=== PATIENT | female | born 1940 | race Caucasian/White ===

== ENCOUNTER → 2018-12-24 | Outpatient (CLI) | payer MEDICARE ==
[~2018-12-24] MED LIST: ALBIPROI INH; ALBU90OI INH; ALBU90OI6 INH; AMOCLA875 PO; FLUSAL2505 IH; MONT5TCH PO; PRED20 PO
[2018-12-24 09:31] LABS: BASOPHILS ABSOLUTE AUTO 0.06 K/mm3 (0.00-0.23); BASOPHILS PERCENT AUTO 1 % (0-2); EOSINOPHILS PERCENT AUTO 1 % (0-6); Hemoglobin 13.5 g/dL (11.5-16.0); IMMATURE GRAN ABSOLUTE AUTO 0.04 K/mm3 (0.00-0.10); IMMATURE GRAN PERCENT AUTO 1 % (0-1); LYMPHOCYTES ABSOLUTE AUTO 1.15 K/mm3 (0.84-5.20); LYMPHOCYTES PERCENT AUTO 15 % (21-46); MONOCYTES ABSOLUTE AUTO 0.79 K/mm3 (0.16-1.47); MONOCYTES PERCENT AUTO 10 % (4-13); Mean Corpuscular HGB 32.6 pg (26.0-34.0); Mean Corpuscular HGB Conc 32.9 g/dL (31.5-36.5); Mean Corpuscular Volume 99 fL (80-100); Mean Platelet Volume 10.4 fL (9.1-12.4); NEUTROPHILS ABSOLUTE AUTO 5.66 K/mm3 (1.96-9.15); NEUTROPHILS PERCENT AUTO 73 % (41-73); Platelet Count 312 K/mm3 (150-400); RDW Coefficient Variation 13.5 % (11.7-14.2); Red Blood Cell Count 4.14 M/mm3 (3.80-5.20)
[2018-12-24 09:42] LABS: Alanine Aminotransfer (ALT/SGP 22 U/L (12-78); Albumin, Blood 3.4 g/dL (3.4-5.0); Albumin/Globulin Ratio 0.9 (0.8-1.8); Alk Phos 96 U/L (40-126); Anion Gap 9 mmol/L (6-16); Aspartate Aminotrans (AST/SGOT 18 U/L (12-37); Blood Urea Nitrogen 9 mg/dL (8-24); Bun/Creatinine Ratio 15.8 (12.0-20.0); CO2, Blood 28 mmol/L (21-32); Calcium, Blood 9.1 mg/dL (8.5-10.1); Chloride, Blood 101 mmol/L (98-108); Creatinine, Blood 0.57 mg/dL (0.40-1.00); Globulin, Blood 3.7 g/dL (2.2-4.0); Glomerular Filtration Rate >60 (60-); Glucose, Blood 98 mg/dL (70-99); Potassium, Blood 3.9 mmol/L (3.5-5.5); Sodium, Blood 138 mmol/L (136-145); Total Protein, Blood 7.1 g/dL (6.4-8.2)
== END | disposition home or self-care (01) ==
LOC: LAB SHORT 09:25 → LAB EV 09:25
PROVIDERS: Physician Assistant
DX: R10.9 Unspecified abdominal pain (principal)
CPT/HCPCS: 80053; 83690; 85025

== ENCOUNTER 2019-01-07 12:03 | Emergency (ER) | payer MEDICARE ==
[~2019-01-07] VITALS: Ht 170.2 cm; Wt 53.5 kg
[2019-01-07] MEDS ORDERED: OMEPRAZOLE20 MG PO (12:39)
[2019-01-07] MEDS ORDERED: ALPR1 PO (12:39)
[2019-01-07] MEDS ORDERED: Advair Hfa 230-12 GM PO (12:40)
[2019-01-07] MEDS ORDERED: MONT10T PO (12:41)
[2019-01-07 12:44] LABS: BASOPHILS ABSOLUTE AUTO 0.07 K/mm3 (0.00-0.23); BASOPHILS PERCENT AUTO 1 % (0-2); EOSINOPHILS ABSOLUTE AUTO 0.04 K/mm3 (0.00-0.68); EOSINOPHILS PERCENT AUTO 1 % (0-6); Hematocrit 45.4 % (33.0-51.0); Hemoglobin 14.2 g/dL (11.5-16.0); IMMATURE GRAN ABSOLUTE AUTO 0.03 K/mm3 (0.00-0.10); IMMATURE GRAN PERCENT AUTO 0 % (0-1); LYMPHOCYTES ABSOLUTE AUTO 0.89 K/mm3 (0.84-5.20); LYMPHOCYTES PERCENT AUTO 12 % (21-46); MONOCYTES PERCENT AUTO 6 % (4-13); Mean Corpuscular HGB 33.1 pg (26.0-34.0); Mean Corpuscular HGB Conc 31.3 g/dL (31.5-36.5); Mean Corpuscular Volume 106 fL (80-100); Mean Platelet Volume 10.3 fL (9.1-12.4); NEUTROPHILS ABSOLUTE AUTO 5.73 K/mm3 (1.96-9.15); NEUTROPHILS PERCENT AUTO 80 % (41-73); Platelet Count 349 K/mm3 (150-400); RDW Coefficient Variation 13.6 % (11.7-14.2); RDW Standard Deviation 53.7 fL (35.1-46.3); Red Blood Cell Count 4.29 M/mm3 (3.80-5.20); White Blood Cell Count 7.16 K/mm3 (4.00-11.30)
[2019-01-07 13:10] LABS: Alanine Aminotransfer (ALT/SGP 34 U/L (12-78); Albumin, Blood 3.8 g/dL (3.4-5.0); Alk Phos 87 U/L (50-136); Anion Gap 13 mmol/L (6-16); Aspartate Aminotrans (AST/SGOT 31 U/L (12-37); Bilirubin, Total 0.5 mg/dL (0.1-1.0); Blood Urea Nitrogen 7 mg/dL (8-24); Bun/Creatinine Ratio 15.1 (12.0-20.0); CO2, Blood 18 mmol/L (21-32); Chloride, Blood 110 mmol/L (98-108); Creatinine, Blood 0.46 mg/dL (0.40-1.00); Globulin, Blood 3.8 g/dL (2.2-4.0); Glomerular Filtration Rate >60 (60-); Glucose, Blood 51 mg/dL (70-99); Sodium, Blood 141 mmol/L (136-145); Total Protein, Blood 7.6 g/dL (6.4-8.2)
[2019-01-07 13:10] LABS: Source, Urine Catheter
[2019-01-07 13:18] LABS: Bilirubin, Urine Neg (Neg); Blood, Urine 1+ (Neg); Glucose Qualitative, Urine Neg (Neg); Ketones, Urine 4+ (Neg); Leukocyte Esterase, Urine Neg (Neg); Nitrite, Urine Neg (Neg); Protein, Urine 1+ (Neg); Urobilinogen, Urine NORM (Normal)
[2019-01-07 13:27] LABS: Appearance, Urine Clear (Clear); Color, Urine Yellow (P-Yellow)
[2019-01-07 13:31] LABS: Bacteria Not Seen /hpf; Mucus Light (0-Heavy); Red Blood Cells, Urine 0-2 /hpf (0-2); Squamous Epithelial Cells Rare /hpf (Few); White Blood Cells, Urine 0-2 /hpf (0-5)
== END 2019-01-07 14:04 | disposition home or self-care (01) ==
LOC: ER 12:03
PROVIDERS: Emergency Medicine; Physician Assistant
DX: R41.82 Altered mental status, unspecified (principal); Z87.891 Personal history of nicotine dependence
CPT/HCPCS: 36415; 74176; 80053; 81001; 85025; 93005; 93010; 99284-25; P9612

== ENCOUNTER 2021-06-20 14:46 | Emergency (ER) | payer MEDICARE ==
[~2021-06-20] VITALS: Ht 162.6 cm; Wt 49.4 kg
[~2021-06-20 14:46] MED LIST changes: +ALPR1 PO; +Advair Hfa 230-12 GM INH; +Advair Hfa 230-12 GM PO; +MONT10T PO; +OMEPRAZOLE20 MG PO; +Ventolin/Prove6.7 GM INH
[2021-06-20 15:41] LABS: Source, Urine Clean Catch
[2021-06-20 16:24] LABS: BASOPHILS ABSOLUTE AUTO 0.08 K/mm3 (0.00-0.23); BASOPHILS PERCENT AUTO 1 % (0-2); EOSINOPHILS PERCENT AUTO 3 % (0-6); Hematocrit 42.8 % (33.0-51.0); Hemoglobin 14.1 g/dL (11.5-16.0); IMMATURE GRAN ABSOLUTE AUTO 0.02 K/mm3 (0.00-0.10); IMMATURE GRAN PERCENT AUTO 0 % (0-1); LYMPHOCYTES ABSOLUTE AUTO 0.95 K/mm3 (0.84-5.20); LYMPHOCYTES PERCENT AUTO 14 % (21-46); MONOCYTES ABSOLUTE AUTO 0.62 K/mm3 (0.16-1.47); MONOCYTES PERCENT AUTO 9 % (4-13); Mean Corpuscular HGB 33.7 pg (26.0-34.0); Mean Corpuscular HGB Conc 32.9 g/dL (31.5-36.5); Mean Corpuscular Volume 102 fL (80-100); Mean Platelet Volume 10.5 fL (9.1-12.4); NEUTROPHILS ABSOLUTE AUTO 4.95 K/mm3 (1.96-9.15); NEUTROPHILS PERCENT AUTO 73 % (41-73); Platelet Count 308 K/mm3 (150-400); RDW Coefficient Variation 12.1 % (11.7-14.2); RDW Standard Deviation 45.5 fL (35.1-46.3); Red Blood Cell Count 4.19 M/mm3 (3.80-5.20); White Blood Cell Count 6.82 K/mm3 (4.00-11.30)
[2021-06-20 16:34] LABS: Appearance, Urine Clear (Clear); Bilirubin, Urine Neg (Neg); Blood, Urine Neg (Neg); Color, Urine Yellow (P-Yellow); Glucose Qualitative, Urine Neg (Neg); Ketones, Urine Neg (Neg); Leukocyte Esterase, Urine Neg (Neg); Nitrite, Urine Neg (Neg); Protein, Urine Neg (Neg); Urobilinogen, Urine NORM (Normal)
[2021-06-20 16:43] LABS: Alanine Aminotransfer (ALT/SGP 27 U/L (12-78); Albumin, Blood 3.4 g/dL (3.4-5.0); Albumin/Globulin Ratio 0.9 (0.8-1.8); Alk Phos 65 U/L (50-136); Anion Gap 4 mmol/L (6-16); Aspartate Aminotrans (AST/SGOT 32 U/L (12-37); Bilirubin, Total 0.4 mg/dL (0.1-1.0); Blood Urea Nitrogen 7 mg/dL (8-24); Bun/Creatinine Ratio 12.7 (12.0-20.0); CO2, Blood 27 mmol/L (21-32); Calcium, Blood 8.6 mg/dL (8.5-10.1); Chloride, Blood 107 mmol/L (98-108); Creatinine, Blood 0.55 mg/dL (0.40-1.00); Globulin, Blood 3.7 g/dL (2.2-4.0); Glomerular Filtration Rate >60 (60-); Glucose, Blood 90 mg/dL (70-99); Potassium, Blood 4.2 mmol/L (3.5-5.5); Sodium, Blood 138 mmol/L (136-145); Total Protein, Blood 7.1 g/dL (6.4-8.2); Troponin I <0.015 ng/mL (0.000-0.040)
[2021-06-20] MEDS ORDERED: PRIMATENE MIST (17:09)
[2021-06-20] MEDS ORDERED: ALBU90OI INH (22:15)
[2021-06-20] MEDS ORDERED: Flonase 0.05% N16 GM (22:15)
[2021-06-20] MEDS ORDERED: PRED20 PO (22:15)
[2021-06-20] MEDS ORDERED: COMBIVENT RESPIM4 G1 INH (22:15)
== END 2021-06-20 22:45 | disposition home or self-care (01) ==
LOC: ER 14:46
PROVIDERS: Physician Assistant
DX: J44.1 Chronic obstructive pulmonary disease with (acute) exacerbation (principal); R42 Dizziness and giddiness; R51.9 Headache, unspecified; Z20.822 Contact with and (suspected) exposure to COVID-19; Z88.0 Allergy status to penicillin; Z79.899 Other long term (current) drug therapy
CPT/HCPCS: 36415; 70450; 71046; 74018; 80053; 81003; 83690; 83880; 84484; 85025; 85651; 86140; 93005; 93010; 94640; 99284-25; J7512

== ENCOUNTER 2021-10-08 12:17 | Inpatient (IN) | payer MEDICARE ==
[~2021-10-08] VITALS: Ht 162.6 cm; Wt 53.8 kg
[~2021-10-08 12:17] MED LIST changes: +BENZ100A PO; +COMBIVENT RESPIM4 G1 INH; +Flonase 0.05% N16 GM; +GUAI600T33 PO; +PRIMATENE MIST
[2021-10-08 13:15] LABS: BASOPHILS ABSOLUTE AUTO 0.03 K/mm3 (0.00-0.23); BASOPHILS PERCENT AUTO 0 % (0-2); EOSINOPHILS ABSOLUTE AUTO 0.05 K/mm3 (0.00-0.68); EOSINOPHILS PERCENT AUTO 1 % (0-6); Hematocrit 38.6 % (33.0-51.0); Hemoglobin 12.8 g/dL (11.5-16.0); IMMATURE GRAN ABSOLUTE AUTO 0.03 K/mm3 (0.00-0.10); IMMATURE GRAN PERCENT AUTO 0 % (0-1); LYMPHOCYTES ABSOLUTE AUTO 0.72 K/mm3 (0.84-5.20); LYMPHOCYTES PERCENT AUTO 11 % (21-46); MONOCYTES ABSOLUTE AUTO 0.89 K/mm3 (0.16-1.47); MONOCYTES PERCENT AUTO 13 % (4-13); Mean Corpuscular HGB 32.4 pg (26.0-34.0); Mean Corpuscular HGB Conc 33.2 g/dL (31.5-36.5); Mean Corpuscular Volume 98 fL (80-100); Mean Platelet Volume 10.6 fL (9.1-12.4); NEUTROPHILS ABSOLUTE AUTO 5.11 K/mm3 (1.96-9.15); NEUTROPHILS PERCENT AUTO 75 % (41-73); Platelet Count 226 K/mm3 (150-400); RDW Coefficient Variation 12.1 % (11.7-14.2); RDW Standard Deviation 43.8 fL (35.1-46.3); Red Blood Cell Count 3.95 M/mm3 (3.80-5.20); White Blood Cell Count 6.83 K/mm3 (4.00-11.30)
[2021-10-08 13:20] LABS: Source, Urine Clean Catch
[2021-10-08 13:23] LABS: Appearance, Urine Clear (Clear); Bilirubin, Urine Neg (Neg); Blood, Urine 2+ (Neg); Color, Urine Yellow (P-Yellow); Glucose Qualitative, Urine Neg (Neg); Ketones, Urine Neg (Neg); Leukocyte Esterase, Urine Neg (Neg); Nitrite, Urine Neg (Neg); Protein, Urine Neg (Neg); Urobilinogen, Urine NORM (Normal)
[2021-10-08 13:29] LABS: Red Blood Cells, Urine 0-2 /hpf (0-2); Squamous Epithelial Cells Not Seen /hpf (Few); White Blood Cells, Urine Not Seen /hpf (0-5)
[2021-10-08 13:30] LABS: Bacteria Rare /hpf
[2021-10-08 13:34] LABS: Base Excess Venous 5.1 mmol/L; Bicarbonate Venous 28.1 mmol/L (24.0-30.0); PCO2 Venous 51.1 mmHg (38-42); PO2 Venous 116 mmHg (38-42); pH Blood Venous 7.38 (7.34-7.37)
[2021-10-08 13:36] LABS: Alanine Aminotransfer (ALT/SGP 30 U/L (12-78); Albumin, Blood 3.7 g/dL (3.4-5.0); Albumin/Globulin Ratio 0.9 (0.8-1.8); Alk Phos 77 U/L (50-136); Anion Gap 3 mmol/L (6-16); Aspartate Aminotrans (AST/SGOT 28 U/L (12-37); Bilirubin, Total 0.4 mg/dL (0.1-1.0); Blood Urea Nitrogen 10 mg/dL (8-24); Bun/Creatinine Ratio 20.2 (12.0-20.0); CO2, Blood 31 mmol/L (21-32); Calcium, Blood 8.7 mg/dL (8.5-10.1); Chloride, Blood 102 mmol/L (98-108); Globulin, Blood 3.9 g/dL (2.2-4.0); Glomerular Filtration Rate >60 (60-); Glucose, Blood 109 mg/dL (70-99); Sodium, Blood 136 mmol/L (136-145); Total Protein, Blood 7.6 g/dL (6.4-8.2)
[2021-10-08] MEDS ORDERED: PRED20 PO (15:50)
[2021-10-08] MEDS ORDERED: DOXY100 PO (15:50)
[2021-10-08] MEDS ORDERED: TIOT18 (19:07)
[2021-10-08] MEDS ORDERED: ATROVENT HFA12.9 GM (19:09)
[2021-10-08] MEDS ORDERED: BUDESONIDE0.5 MG/2 M (19:09)
--- NOTE | 2021-10-08 22:02 | NUR ---
Patient arrived to unit about 1950. Alert and oriented x's 4, can be forgetful. No acute distress noted. Respirations even and unlabored, O2@2L via n/c, expiratory wheezing throughout. Oriented patient to room and call german, verbalized undersatnding, Safety maintained, call german in reach.
[2021-10-09 05:02] LABS: BASOPHILS ABSOLUTE AUTO 0.02 K/mm3 (0.00-0.23); BASOPHILS PERCENT AUTO 0 % (0-2); EOSINOPHILS ABSOLUTE AUTO 0.01 K/mm3 (0.00-0.68); EOSINOPHILS PERCENT AUTO 0 % (0-6); Hematocrit 34.6 % (33.0-51.0); IMMATURE GRAN ABSOLUTE AUTO 0.02 K/mm3 (0.00-0.10); IMMATURE GRAN PERCENT AUTO 0 % (0-1); LYMPHOCYTES ABSOLUTE AUTO 0.83 K/mm3 (0.84-5.20); LYMPHOCYTES PERCENT AUTO 16 % (21-46); MONOCYTES ABSOLUTE AUTO 0.55 K/mm3 (0.16-1.47); MONOCYTES PERCENT AUTO 11 % (4-13); Mean Corpuscular HGB 31.1 pg (26.0-34.0); Mean Corpuscular HGB Conc 31.8 g/dL (31.5-36.5); Mean Corpuscular Volume 98 fL (80-100); Mean Platelet Volume 11.2 fL (9.1-12.4); NEUTROPHILS ABSOLUTE AUTO 3.73 K/mm3 (1.96-9.15); NEUTROPHILS PERCENT AUTO 72 % (41-73); Platelet Count 209 K/mm3 (150-400); RDW Standard Deviation 43.9 fL (35.1-46.3); Red Blood Cell Count 3.54 M/mm3 (3.80-5.20); White Blood Cell Count 5.16 K/mm3 (4.00-11.30)
[2021-10-09 05:33] LABS: Alanine Aminotransfer (ALT/SGP 26 U/L (12-78); Albumin, Blood 3.2 g/dL (3.4-5.0); Albumin/Globulin Ratio 0.9 (0.8-1.8); Alk Phos 64 U/L (50-136); Anion Gap 4 mmol/L (6-16); Aspartate Aminotrans (AST/SGOT 24 U/L (12-37); Bilirubin, Total 0.4 mg/dL (0.1-1.0); Blood Urea Nitrogen 8 mg/dL (8-24); Bun/Creatinine Ratio 18.9 (12.0-20.0); CO2, Blood 30 mmol/L (21-32); Calcium, Blood 8.2 mg/dL (8.5-10.1); Chloride, Blood 105 mmol/L (98-108); Creatinine, Blood 0.42 mg/dL (0.40-1.00); Globulin, Blood 3.4 g/dL (2.2-4.0); Glomerular Filtration Rate >60 (60-); Glucose, Blood 100 mg/dL (70-99); Potassium, Blood 4.2 mmol/L (3.5-5.5); Sodium, Blood 139 mmol/L (136-145); Total Protein, Blood 6.6 g/dL (6.4-8.2)
--- NOTE | 2021-10-09 05:38 | NUR ---
Alert and oriented x's 4. Has increased SOB and expiratory wheezing on exertion. Medicated with scheduled nebulizers and solu medrol. 1 assist to BSC. Safety maintained, call german in reach.
--- NOTE | 2021-10-09 20:03 | NUR ---
SHIFT SUMMARY: NO ACUTE EVENTS. ON AIRVO HEATED HIGH FLOW O2 @ 30 L/MIN 21% FIO2. BREATH SOUNDS VERY DIMINISHED THROUGHOUT. GETTING UP TO BSC INDEPENDENTLY; HAD MED, HARD, BLACK BM TODAY AND BM MEDS GIVEN. HAVING PANIC EPISODES WHEN SOB; EDUCATED ABOUT PURSED LIP BREATHING, CLOSING EYES, AND NOT TALKING WHILE SOB TALKING USES VALUABLE OXYGEN AND VERBALIZED UNDERSTANDING. DENIED PAIN. THINKS SHE WILL BE DISCHARGED TOMORROW.
--- NOTE | 2021-10-10 05:20 | NUR ---
Alert and oriented x's 4. Continues on high flow n/c, tolerating well. At rest respirations even and unlabored. Continues to get very SOB and has audible wheezing on exertion. Once patient rests wheezing subsides. Requested Xanax at night due to anxiety, effective, patient verbalized she slept well through night. Safety maintained, call german in reach.
[2021-10-10 05:47] LABS: Albumin, Blood 3.3 g/dL (3.4-5.0); Anion Gap 5 mmol/L (6-16); Blood Urea Nitrogen 13 mg/dL (8-24); Bun/Creatinine Ratio 26.9 (12.0-20.0); CO2, Blood 30 mmol/L (21-32); Chloride, Blood 105 mmol/L (98-108); Creatinine, Blood 0.48 mg/dL (0.40-1.00); Glomerular Filtration Rate >60 (60-); Glucose, Blood 144 mg/dL (70-99); Phosphorus, Blood 2.8 mg/dL (2.5-4.9); Potassium, Blood 4.2 mmol/L (3.5-5.5); Sodium, Blood 140 mmol/L (136-145)
--- NOTE | 2021-10-10 07:00 | NUR ---
ASSUMED CARE AT 0700, RECEIVED REPORT FROM NIGHT RN. PT SITTING AT EDGE OF BED IN NO CURRENT DISTRESS.
--- NOTE | 2021-10-10 13:38 | NUR ---
BLACK STOOL PT HAD A BLACK STOOL THIS AM. DR. ARAIZA NOTIFED AND INFORMED NURSING STAFF TO KEEP THE STOOL AND CALL HER TO COME OBSERVE IT.
--- NOTE | 2021-10-10 15:00 | NUR ---
O2 TITRATED TO 13L FROM 15L HIGH FLOW NC. PT TOLERATING WELL AND SATING AT 98-99%
--- NOTE | 2021-10-10 17:05 | NUR ---
SHIFT SUMMARY PT TITRATED OFF OF THE AIRVO TODAY BY RT AND FURTHER TITRATED DOWN TO 10L VIA HIGH FLOW NC. PT TOLERATING THIS WELL AND SATING AT 98-99% ON CONT PULSE OX. PT MEDICATED FOR ANXIETY ONCE THIS SHIFT. ONLY A HALF A TAB PER PT REQUEST & THIS WORKED WELL FOR THE PT. NO OTHER ACUTE CHANGES IN ASSESSMENT AT THIS TIME. VS REVIEWED. PT DANGLING ON SIDE OF BED. CALL LIGHT IN REACH.
--- NOTE | 2021-10-10 18:45 | NUR ---
SHIFT SUMMARY PT WAS TITRATED FROM 15L ON HIGH FLOW TO 10L ON HIGH FLOW AND HAS A CURRENT SPO2 OF 98-99%. RESPIRATORY EFFORT HAS IMPROVED THROUGHOUT THE DAY, BUT STILL EXPERIENCING SOB WHILE TOILETING ON BSC. PT FAMILY VISITED THROUGHOUT THE DAY. PT WAS GIVEN XANAX FOR ANXIETY AND HAS IMPROVED. SHE IS REQUESTING TO HAVE ANOTHER DOSE BEFORE BED. WILL CONTINUE TO MONITOR UNTIL REPORT GIVEN TO NIGHT RN.
[2021-10-11 04:56] LABS: Albumin, Blood 3.3 g/dL (3.4-5.0); Anion Gap 3 mmol/L (6-16); Blood Urea Nitrogen 17 mg/dL (8-24); Bun/Creatinine Ratio 30.3 (12.0-20.0); CO2, Blood 32 mmol/L (21-32); Calcium, Blood 8.7 mg/dL (8.5-10.1); Chloride, Blood 103 mmol/L (98-108); Creatinine, Blood 0.56 mg/dL (0.40-1.00); Glomerular Filtration Rate >60 (60-); Glucose, Blood 147 mg/dL (70-99); Phosphorus, Blood 3.1 mg/dL (2.5-4.9); Potassium, Blood 4.3 mmol/L (3.5-5.5); Sodium, Blood 138 mmol/L (136-145)
--- NOTE | 2021-10-11 05:44 | NUR ---
SHIFT SUMMARY ALERT AND ORIENTED X'S 4. EXPIRATORY WHEEZING ON EXERTION HS. THIS AM IMROVING UPON EXERTION. CURRENTLY ON HIGH FLOW 5L, TOLERATING WELL, SATURATION 97%. SUPERVISION TO BSC. SAFETY MAINTAINED, CALL GALLEGOS IN REACH.
--- NOTE | 2021-10-11 12:27 | NUR ---
O2 TITRATED DOWN TO 4L. PT TOLERATING THIS AND SATING ABOVE 95%
--- NOTE | 2021-10-11 14:37 | NUR ---
Met pt. lying in bed and is doing much better , prayed with pt. and gave spiritual support.
--- NOTE | 2021-10-11 17:20 | NUR ---
SHIFT SUMMARY PT TITRATED TO 4L O2 TODAY VIA NC. PT MORE ANXIOUS TODAY, BUT HAS NOT HAD MANY VISITORS AND TENDS TO GET MORE ANXIOUS WHEN ALONE. SATING ABOUT 95% ALL DAY WITH NO EPISODES OF DESATURATION. NO OTHER ACUTE CHANGES IN ASSESSMENT AT THIS TIME. VS REVIEWED. PT SITTING UPRIGHT IN BED, VISITING WITH HER . CALL LIGHT IN REACH
--- NOTE | 2021-10-12 05:55 | NUR ---
ALERT AND ORIENTED X'S 4. SLEPT WELL THROUGH NIGHT. THIS AM HAD INCREASED WHEEZING WITH EXERTION, OTHER BURNS DIMINISHED. NEB TX GIVEN, PATIENT VOICED RELIEF. CURRENTLY SITTING UP WATCHING TV. NO ACUTE DISTRESS NOTED, RESPIRATIONS EVEN AND UNLABORED. SAFETY MAINTAINED, CALL GALLEGOS IN REACH.
--- NOTE | 2021-10-12 18:36 | NUR ---
SUMMARY- PT A/O X4, SBA TO BSC. LUNGS DIM IN BASES, FREQ EXP WHEEZE. ROUTINE NEBS. SOB WITH EXERTION. PT HAS DISCHARGE ORDERS BUT DAUGHTER GENESIS HAS REQUESETD FOR DC DELAY TOMORROW 1100, DR HITCHCOCK SPOKE WITH DAUGHTER AT BEDSIDE AND AGREED TO HOLE DC FOR TOMORROW. CHANGED SOLUMEDROL TO PREDINISONE.
--- NOTE | 2021-10-13 07:22 | NUR ---
Alert and oriented x's 4. Slept well through night. O2@2.5L via n/c. Patient attempting to untangle cords this am and began to wheeze, Neb tx given by RT, effective relief. Continues to cough up clear sputumn. Currently sitting up in bed watching TV. Safety maintained, call german in reach.
[2021-10-13] MEDS ORDERED: Acetaminophen650 M1 PO (09:24)
[2021-10-13] MEDS ORDERED: ALBU2.5V5 INH (09:25)
[2021-10-13] MEDS ORDERED: DOXY100 PO (09:26)
[2021-10-13] MEDS ORDERED: Prednisone10 MG PO (09:35)
[2021-10-13] MEDS ORDERED: MIRALAX1711 PO (09:36)
[2021-10-13] MEDS ORDERED: [UNRECOGNIZED DRUG - OTHER] PO (09:43)
--- NOTE | 2021-10-13 14:08 | NUR ---
PT DISCHARGED WITH INSTRUCTIONS. WHEELCHAIR OUT TO PRIVATE CAR, SON IN LAW DROVE HOME. PT HAS PORTABLE OXYGEN. BELONGS SENT HOME- IV DC'D. TOLERATING ACTIVITY IN ROOM TO BATHROOM AND SBA UP TO WHEELCHAIR WITH MIN SOB. NEB TX GIVEN BEFORE DISCHARGE.
== END 2021-10-13 12:16 | disposition home health service (06) | DRG 189 ==
LOC: ER 12:17 → MEDS 19:39 → ENPENDDIS 10-12 16:29 → MEDS 10-13 12:16
PROVIDERS: Internal Medicine; Student in an Organized Health Care Education/Training Program; ADMIT Internal Medicine
PROC: 5A0945A Assistance with Respiratory Ventilation, 24-96 Consecutive Hours, High Flow/Velocity Cannula (ICD-10-PCS; principal; 2021-10-08)
DX: J96.21 Acute and chronic respiratory failure with hypoxia (principal); R65.11 Systemic inflammatory response syndrome (SIRS) of non-infectious origin with acute organ dysfunction; J44.1 Chronic obstructive pulmonary disease with (acute) exacerbation; F41.9 Anxiety disorder, unspecified; K59.00 Constipation, unspecified; J20.9 Acute bronchitis, unspecified; Z99.81 Dependence on supplemental oxygen; Z98.890 Other specified postprocedural states; Z90.710 Acquired absence of both cervix and uterus; Z79.899 Other long term (current) drug therapy; Z88.0 Allergy status to penicillin; Z87.891 Personal history of nicotine dependence; J96.02 Acute respiratory failure with hypercapnia
CPT/HCPCS: 36415; 51701; 71045; 80053; 80069; 81001; 82803; 84145; 85025; 87070; 87205; 93005; 93010; 94640; 94762; 96365; 99285-25; A9270; J1650; J2920; J2930; J3475; J7030; J7512

== ENCOUNTER 2022-11-24 13:42 | Emergency (ER) | payer MEDICARE ==
[~2022-11-24] VITALS: Ht 160 cm; Wt 54.4 kg
[~2022-11-24 13:42] MED LIST changes: +ALBU2.5V5 INH; +ANORO ELLIPTA1 EACH INH; +ATROVENT HFA12.9 GM; +Acetaminophen650 M1 PO; +BUDESONIDE0.5 MG/2 M INH; +BUDESONIDE0.5 MG/25; +CEFP200 PO; +DOXY100 PO; +EXTRA PAIN REL1 EAC2 PO; +LOPE2C PO; +MELATONIN5 M1 PO; +MIRALAX1711 PO; +ONDA4ODT MM; +Prednisone10 MG PO; +TIOT18; +[UNRECOGNIZED DRUG - OTHER] PO
[2022-11-24 14:51] LABS: BASOPHILS ABSOLUTE AUTO 0.06 K/mm3 (0.00-0.23); BASOPHILS PERCENT AUTO 1 % (0-2); EOSINOPHILS ABSOLUTE AUTO 0.14 K/mm3 (0.00-0.68); EOSINOPHILS PERCENT AUTO 3 % (0-6); Hematocrit 38.1 % (33.0-51.0); Hemoglobin 12.6 g/dL (11.5-16.0); IMMATURE GRAN ABSOLUTE AUTO 0.01 K/mm3 (0.00-0.10); IMMATURE GRAN PERCENT AUTO 0 % (0-1); LYMPHOCYTES ABSOLUTE AUTO 0.84 K/mm3 (0.84-5.20); LYMPHOCYTES PERCENT AUTO 18 % (21-46); MONOCYTES ABSOLUTE AUTO 0.48 K/mm3 (0.16-1.47); MONOCYTES PERCENT AUTO 10 % (4-13); Mean Corpuscular HGB Conc 33.1 g/dL (31.5-36.5); Mean Corpuscular Volume 94 fL (80-100); Mean Platelet Volume 10.7 fL (9.1-12.4); NEUTROPHILS ABSOLUTE AUTO 3.27 K/mm3 (1.96-9.15); NEUTROPHILS PERCENT AUTO 68 % (41-73); Platelet Count 241 K/mm3 (150-400); RDW Coefficient Variation 12.6 % (11.7-14.2); RDW Standard Deviation 43.8 fL (35.1-46.3); Red Blood Cell Count 4.06 M/mm3 (3.80-5.20)
[2022-11-24 15:12] LABS: Albumin/Globulin Ratio 1.3 (0.8-1.8); Bilirubin, Total 0.6 mg/dL (0.1-1.0); Bun/Creatinine Ratio 19.4 (12.0-20.0); Calcium, Blood 9.6 mg/dL (8.5-10.1); Creatinine, Blood 0.52 mg/dL (0.40-1.00); Globulin, Blood 3.1 g/dL (2.2-4.0); Total Protein, Blood 7.1 g/dL (6.4-8.2)
[2022-11-24 17:45] VITALS: BP 124/88
== END 2022-11-24 18:45 | disposition home or self-care (01) ==
LOC: ER 13:42
PROVIDERS: Physician Assistant
DX: R10.32 Left lower quadrant pain (principal); R19.5 Other fecal abnormalities; T36.0X5A Adverse effect of penicillins, initial encounter; T36.1X5A Adverse effect of cephalosporins and other beta-lactam antibiotics, initial encounter; K57.32 Diverticulitis of large intestine without perforation or abscess without bleeding; J44.9 Chronic obstructive pulmonary disease, unspecified; Z88.0 Allergy status to penicillin; Z79.899 Other long term (current) drug therapy; Z99.81 Dependence on supplemental oxygen; Z87.891 Personal history of nicotine dependence
CPT/HCPCS: 36415; 74177; 80053; 83690; 85025; 96374-59; 96376; 99284-25; A9270; J1885; Q9967

== ENCOUNTER → 2023-05-09 | Outpatient (CLI) | payer MEDICARE ==
[2023-05-11 08:12] LABS: FERRITIN 132 ng/mL (15-150); IRON BIND.CAP.(TIBC) 336 ug/dL (250-450); IRON SATURATION 26 % (15-55); IRON, SERUM 89 ug/dL (27-139); UIBC 247 ug/dL (118-369)
== END | disposition home or self-care (01) ==
LOC: LAB SHORT 18:15 → LAB 18:15
PROVIDERS: Internal Medicine
DX: G25.81 Restless legs syndrome (principal); E61.1 Iron deficiency
CPT/HCPCS: 82728; 83540; 83550

== ENCOUNTER 2023-05-27 12:06 | Emergency (ER) | payer MEDICARE ==
[~2023-05-27] VITALS: Ht 157.5 cm; Wt 43.1 kg
[2023-05-27] MEDS ORDERED: ALPR.5 PO (12:17)
[2023-05-27 12:28] LABS: Source, Urine Straight Cath
[2023-05-27 12:48] LABS: Base Excess Venous 10.1 mmol/L; Bicarbonate Venous 31.5 mmol/L (24.0-30.0); PCO2 Venous 72.1 mmHg (38-42); pH Blood Venous 7.31 (7.34-7.37)
[2023-05-27 12:48] LABS: Appearance, Urine Clear (Clear); Bilirubin, Urine Neg (Neg); Blood, Urine 3+ (Neg); Color, Urine Yellow (P-Yellow); Glucose Qualitative, Urine Neg (Neg); Ketones, Urine Neg (Neg); Leukocyte Esterase, Urine Neg (Neg); Nitrite, Urine Neg (Neg); Protein, Urine 1+ (Neg); Specific Gravity, Urine 1.025 (1.003-1.022); Urobilinogen, Urine NORM (Normal)
[2023-05-27 12:49] LABS: BASOPHILS ABSOLUTE AUTO 0.05 K/mm3 (0.00-0.23); BASOPHILS PERCENT AUTO 1 % (0-2); EOSINOPHILS ABSOLUTE AUTO 0.19 K/mm3 (0.00-0.68); EOSINOPHILS PERCENT AUTO 3 % (0-6); Hematocrit 37.5 % (33.0-51.0); Hemoglobin 11.8 g/dL (11.5-16.0); IMMATURE GRAN ABSOLUTE AUTO 0.01 K/mm3 (0.00-0.10); IMMATURE GRAN PERCENT AUTO 0 % (0-1); LYMPHOCYTES ABSOLUTE AUTO 1.07 K/mm3 (0.84-5.20); LYMPHOCYTES PERCENT AUTO 18 % (21-46); MONOCYTES ABSOLUTE AUTO 0.76 K/mm3 (0.16-1.47); MONOCYTES PERCENT AUTO 13 % (4-13); Mean Corpuscular HGB 31.2 pg (26.0-34.0); Mean Corpuscular HGB Conc 31.5 g/dL (31.5-36.5); Mean Corpuscular Volume 99 fL (80-100); Mean Platelet Volume 10.8 fL (9.1-12.4); NEUTROPHILS PERCENT AUTO 66 % (41-73); Platelet Count 234 K/mm3 (150-400); RDW Coefficient Variation 12.7 % (11.7-14.2); RDW Standard Deviation 46.8 fL (35.1-46.3); Red Blood Cell Count 3.78 M/mm3 (3.80-5.20); White Blood Cell Count 6.08 K/mm3 (4.00-11.30)
[2023-05-27 13:05] LABS: Albumin, Blood 3.6 g/dL (3.4-5.0); Albumin/Globulin Ratio 1.1 (0.8-1.8); Bilirubin, Total 0.6 mg/dL (0.1-1.0); Calcium, Blood 8.7 mg/dL (8.5-10.1); Creatinine, Blood 0.52 mg/dL (0.40-1.00); Globulin, Blood 3.2 g/dL (2.2-4.0); Magnesium, Blood 2.4 mg/dL (1.6-2.4); Potassium, Blood 4.6 mmol/L (3.5-5.5); Total Protein, Blood 6.8 g/dL (6.4-8.2)
[2023-05-27 13:25] LABS: Bacteria Few /hpf; Squamous Epithelial Cells Few /hpf (Few); White Blood Cells, Urine 0-2 /hpf (0-5)
[2023-05-27 13:48] LABS: Base Excess Venous 10.9 mmol/L; Bicarbonate Venous 31.9 mmol/L (24.0-30.0); PCO2 Venous 77.5 mmHg (38-42); pH Blood Venous 7.29 (7.34-7.37)
[2023-05-27 14:06] LABS: Influenza A, PCR NEGATIVE (NEGATIVE); Influenza B, PCR NEGATIVE (NEGATIVE); Resp Syncytial Virus, PCR NEGATIVE (NEGATIVE); SARS-Cov-2 (COVID-19) PCR, MMC NEGATIVE (NEGATIVE)
[2023-05-27 14:30] VITALS: BP 144/66
== END 2023-05-27 15:17 | disposition home or self-care (01) ==
LOC: ER 12:06
PROVIDERS: Student in an Organized Health Care Education/Training Program
DX: T42.4X1A Poisoning by benzodiazepines, accidental (unintentional), initial encounter (principal); G92.8 Other toxic encephalopathy; J96.02 Acute respiratory failure with hypercapnia; I10 Essential (primary) hypertension; J44.9 Chronic obstructive pulmonary disease, unspecified; F41.0 Panic disorder [episodic paroxysmal anxiety]; F03.90 Unspecified dementia, unspecified severity, without behavioral disturbance, psychotic disturbance, mood disturbance, and anxiety; Z87.891 Personal history of nicotine dependence; Z99.81 Dependence on supplemental oxygen; Z88.0 Allergy status to penicillin; Z79.899 Other long term (current) drug therapy; Z20.822 Contact with and (suspected) exposure to COVID-19
CPT/HCPCS: 0241U; 51798; 70450; 71045; 80053; 81001; 82140; 82803; 82947; 83605; 83735; 84145; 85025; 93005; 93010; 96374; 99285-25; A9270; J2405

== ENCOUNTER → 2023-08-02 | Outpatient (CLI) | payer MEDICARE ==
[~2023-08-02] MED LIST changes: +ALPR.5 PO
[2023-08-02 11:50] LABS: BASOPHILS ABSOLUTE AUTO 0.07 K/mm3 (0.00-0.23); BASOPHILS PERCENT AUTO 2 % (0-2); EOSINOPHILS ABSOLUTE AUTO 0.18 K/mm3 (0.00-0.68); EOSINOPHILS PERCENT AUTO 5 % (0-6); Hematocrit 37.9 % (33.0-51.0); IMMATURE GRAN PERCENT AUTO 0 % (0-1); LYMPHOCYTES ABSOLUTE AUTO 0.78 K/mm3 (0.84-5.20); LYMPHOCYTES PERCENT AUTO 20 % (21-46); MONOCYTES ABSOLUTE AUTO 0.45 K/mm3 (0.16-1.47); MONOCYTES PERCENT AUTO 11 % (4-13); Mean Corpuscular HGB 31.1 pg (26.0-34.0); Mean Corpuscular HGB Conc 31.7 g/dL (31.5-36.5); Mean Corpuscular Volume 98 fL (80-100); Mean Platelet Volume 10.9 fL (9.1-12.4); NEUTROPHILS ABSOLUTE AUTO 2.53 K/mm3 (1.96-9.15); NEUTROPHILS PERCENT AUTO 63 % (41-73); Platelet Count 248 K/mm3 (150-400); RDW Coefficient Variation 12.4 % (11.7-14.2); RDW Standard Deviation 44.7 fL (35.1-46.3); Red Blood Cell Count 3.86 M/mm3 (3.80-5.20); White Blood Cell Count 4.01 K/mm3 (4.00-11.30)
[2023-08-02 12:04] LABS: Albumin, Blood 3.9 g/dL (3.4-5.0); Albumin/Globulin Ratio 1.3 (0.8-1.8); Bilirubin, Total 0.4 mg/dL (0.1-1.0); Bun/Creatinine Ratio 17.4 (12.0-20.0); Calcium, Blood 8.9 mg/dL (8.5-10.1); Creatinine, Blood 0.46 mg/dL (0.40-1.00); Globulin, Blood 3.1 g/dL (2.2-4.0); Potassium, Blood 4.7 mmol/L (3.5-5.5)
== END ==
LOC: LAB SHORT 10:51 → LAB 10:51
PROVIDERS: Internal Medicine
DX: R10.31 Right lower quadrant pain (principal)
CPT/HCPCS: 80053; 85025

== ENCOUNTER → 2023-09-17 | Outpatient (CLI) | payer MEDICARE ==
[2023-09-17 15:53] LABS: International Normalized Ratio 1.09; Prothrombin Time Results 11.4 Sec (9.7-11.5)
== END | disposition home or self-care (01) ==
LOC: LAB SHORT 10:25 → LAB 10:25
PROVIDERS: Internal Medicine
DX: I48.0 Paroxysmal atrial fibrillation (principal)
CPT/HCPCS: 85610

== ENCOUNTER → 2023-09-19 | Outpatient (CLI) | payer MEDICARE ==
[2023-09-19 15:24] LABS: International Normalized Ratio 1.2; Prothrombin Time Results 12.5 Sec (9.7-11.5)
== END | disposition home or self-care (01) ==
LOC: LAB SHORT 13:51 → LAB 13:51
PROVIDERS: Internal Medicine
DX: I48.0 Paroxysmal atrial fibrillation (principal)
CPT/HCPCS: 85610

== ENCOUNTER → 2023-09-21 | Outpatient (CLI) | payer MEDICARE ==
[2023-09-21 15:45] LABS: International Normalized Ratio 1.77
== END | disposition home or self-care (01) ==
LOC: LAB SHORT 13:11 → LAB 13:11
PROVIDERS: Internal Medicine
DX: I48.0 Paroxysmal atrial fibrillation (principal)
CPT/HCPCS: 85610

== ENCOUNTER → 2023-09-24 | Outpatient (CLI) | payer MEDICARE ==
[2023-09-24 17:29] LABS: International Normalized Ratio 2.39; Prothrombin Time Results 23.9 Sec (9.7-11.5)
== END ==
LOC: LAB 11:00 → LAB SHORT 11:00
PROVIDERS: Internal Medicine
DX: I48.0 Paroxysmal atrial fibrillation (principal)
CPT/HCPCS: 85610

== ENCOUNTER → 2023-09-28 | Outpatient (CLI) | payer MEDICARE ==
[2023-09-28 14:54] LABS: International Normalized Ratio 2.27; Prothrombin Time Results 22.8 Sec (9.7-11.5)
== END ==
LOC: LAB SHORT 13:49
PROVIDERS: Internal Medicine
DX: I48.0 Paroxysmal atrial fibrillation (principal)
CPT/HCPCS: 85610

== ENCOUNTER → 2023-11-23 | Outpatient (CLI) | payer MEDICARE ==
[2023-11-23 14:19] LABS: International Normalized Ratio 2.57; Prothrombin Time Results 25.6 Sec (9.7-11.5)
== END ==
LOC: LAB SHORT 13:56 → LAB 13:56
PROVIDERS: Internal Medicine
DX: I48.0 Paroxysmal atrial fibrillation (principal)
CPT/HCPCS: 85610

== ENCOUNTER → 2024-01-30 | Outpatient (CLI) | payer MEDICARE ==
[2024-01-30 14:22] LABS: International Normalized Ratio 2.29
== END | disposition home or self-care (01) ==
LOC: LAB 11:00 → LAB SHORT 11:00
PROVIDERS: Internal Medicine
DX: I48.0 Paroxysmal atrial fibrillation (principal)
CPT/HCPCS: 85610

== ENCOUNTER → 2024-02-28 | Outpatient (CLI) | payer MEDICARE ==
[2024-02-28 11:44] LABS: International Normalized Ratio 1.67; Prothrombin Time Results 17.2 Sec (9.7-11.5)
== END | disposition home or self-care (01) ==
LOC: LAB 10:00 → LAB SHORT 10:00
PROVIDERS: Internal Medicine
DX: I48.0 Paroxysmal atrial fibrillation (principal)
CPT/HCPCS: 85610

== ENCOUNTER → 2024-03-25 | Outpatient (CLI) | payer MEDICARE ==
[2024-03-25 14:47] LABS: International Normalized Ratio 2.62; Prothrombin Time Results 26.1 Sec (9.7-11.5)
== END | disposition home or self-care (01) ==
LOC: LAB 10:35 → LAB SHORT 10:35
PROVIDERS: Internal Medicine
DX: I48.0 Paroxysmal atrial fibrillation (principal)
CPT/HCPCS: 85610

== ENCOUNTER → 2024-04-09 | Outpatient (CLI) | payer MEDICARE ==
[2024-04-09 14:04] LABS: International Normalized Ratio 1.41; Prothrombin Time Results 14.7 Sec (9.7-11.5)
== END | disposition home or self-care (01) ==
LOC: LAB SHORT 13:42 → LAB 13:42
PROVIDERS: Internal Medicine
DX: I48.0 Paroxysmal atrial fibrillation (principal)
CPT/HCPCS: 85610